=== PATIENT | male | born 1955 | race Caucasian/White ===

== ENCOUNTER → 2016-11-27 | Outpatient (CLI) | payer MEDICARE ==
[~2016-11-27] MED LIST: A/T/S 2% GEL30 GM OD; ALBUTEROL17 GM INH; ALBUTEROL2.5 MG/0.5 INH; ALDACTONE25 MG PO; ALPRAZOLAM0.25 MG PO; AMIODARONE PO; ASPIRIN PO; ATORVASTATIN CA10 MG PO; BUMETANIDE1 MG PO; BUMETANIDE2 M1 PO; CORDARONE200 M1 PO; COUMADIN PO; FLEXERIL PO; IRON GLUCONATE PO; KETOPROFEN PO; LACTULOSE10 G/15 M1 PO; LEVOTHYROXINE100 MCG PO; METOPROLOL TAR25 MG DOB; METOPROLOL TAR25 MG PO; MILK OF MA800 MG/5 M PO; MILK OF MAGNESIA PO; OXYCODON-ACETA1 EAC1 PO; PEDIA-LAX400 MG PO; PERCOCET 10/3251 TAB PO; POTASSIUM CHLO10 ME1 PO; PROAIR RESPICL90 MCG INH; PROTONIX PO; SODIUM BICARBO650 MG PO; SPIRIVA18 MCG INH; WARFARIN SODIUM1 M1 PO
--- NOTE | ~2016-11-27 | XA170 ---
[facility] A Service of [facility] & [facility] RADIOLOGY TEXT RESULTS PATIENT: RAMON CORMIER SR LOCATION: CIVR : 55 UNIT #: [id number] AGE: [address]: Mega Moreno MD SEX: M ORDER DR: [id number] [facility] [address] [facility] [place], [place] [address] [id number] O MR#: [id number] Acc #: [id number] NAME: RAMON CORMIER : 1955 SEX: M STUDY DATE/TIME: 11/27/2016 8:55 UNIT: [facility] ROOM: STUDY DESCRIPTION: XA Paracentesis W Image Attending Physician: Mega Moreno M.D. Ordering Physician: Mega Moreno M.D. Primary Care Physician: Raj Rahman M.D. MEDICAL IMAGING REPORT This report is preliminary unless electronic signature is present EXAM Ultrasound-guided paracentesis HISTORY Ascites. FINDINGS Procedure, attendant risks and options were discussed with Mr. Cormier. He understands and wishes to proceed. Ultrasound examination was performed of the right flank. The area was prepped with Chlorhexidine and a sterile drape applied. Sterile gloves and local anesthetic were utilized. A 6-Occitan pigtail was placed and a total of 1.6 L of ascitic fluid was removed. This was very well tolerated. Catheter was removed, hemostasis achieved and the patient discharged. A solitary ultrasound image was recorded. CONCLUSION Successful therapeutic paracentesis with removal of 1.6 L of fluid. Dictated by... Scar Sanchez M.D. THIS IS AN ELECTRONICALLY VERIFIED REPORT Scar Sanchez M.D. at 11/30/2016 12:00 PM Angel TD: 11/27/2016 19:33 JOB #: [id number] MEDICAL IMAGING REPORT Page 1 of 1 COPY
[2016-11-27 08:30] LABS: HEMATOCRIT 35.8 % (38.0-50.0); HEMOGLOBIN 11.5 gm/dL (13.0-16.0); MEAN CELL VOLUME 89.7 FL (83-96); MEAN CORPUSCULAR HEMOGLOBIN 28.9 PG (28-34); MEAN CORPUSCULAR HGB CONC 32.2 g/dL (30-36); MEAN PLATELET VOLUME 7.2 FL (6.5-11.5); RED CELL DISTRIBUTION WIDTH 16.6 % (11.0-15.5); WHITE BLOOD COUNT 9.5 X10e3 (4.0-10.5)
[2016-11-27 08:43] LABS: INR 1.3; PARTIAL THROMBOPLASTIN TIME 26.8 SECONDS (23.5-31.3)
== END | disposition home or self-care (01) ==
LOC: CIVR 08:06
PROVIDERS: Internal Medicine Nephrology
DX: R18.8 Other ascites (principal)
CPT/HCPCS: 36415; 85027; 85610; 85730; C1729

== ENCOUNTER → 2016-11-30 | Outpatient (CLI) | payer MEDICARE ==
--- NOTE | ~2016-11-30 | XA170 ---
[facility] A Service of [facility] RADIOLOGY TEXT RESULTS PATIENT: RAMON CORMIER SR LOCATION: [facility] : 55 UNIT #: [id number] AGE: [address]: Mega Moreno MD SEX: M ORDER DR: [id number] [facility] [address]. [place], [place] [address] [id number] O MR#: [id number] Acc #: [id number] NAME: RAMON CORMIER : 1955 SEX: M STUDY DATE/TIME: 11/30/2016 10:58 [facility] ROOM: STUDY DESCRIPTION: XA Paracentesis W Image Attending Physician: Mega Moreno M.D. Ordering Physician: Mega Moreno M.D. Primary Care Physician: Raj Rahman M.D. MEDICAL IMAGING REPORT This report is preliminary unless electronic signature is present EXAM Ultrasound-guided paracentesis. DATE OF EXAM 11/30/2016 INDICATIONS 61-year male with ascites. The risks, benefits and alternatives of the procedure were discussed with the patient and an informed consent was obtained. In the procedure room, a time-out was performed confirming correct patient and procedure. All elements of maximum sterile-barrier technique utilized according to guidelines appropriate for the procedure. TECHNIQUE/FINDINGS Ultrasound of the right lower quadrant was performed. There is small amount of ascites. The overlying skin was prepped and draped in the usual sterile fashion. 1% lidocaine was utilized to anesthetize the skin and underlying subcutaneous tissues. Next, under ultrasound guidance, 5-Azerbaijani Yueh catheter was inserted into the peritoneal space of the right lower quadrant and 1550 mL of clear yellow fluid was removed. The needle was removed and a sterile dressing was applied. No immediate complications. IMPRESSION Technically successful ultrasound-guided paracentesis. Dictated by... Adithya Cullen M.D. [facility] A Service of [facility] RADIOLOGY TEXT RESULTS PATIENT: RAMON CORMIER SR LOCATION: [facility] : 55 UNIT #: [id number] AGE: [address]: Mega Moreno MD SEX: M ORDER DR: THIS IS AN ELECTRONICALLY VERIFIED REPORT Adithya Cullen M.D. at 12/01/2016 2:34 PM KASEY/fernanda TD: 11/30/2016 19:34 JOB #: [id number] MEDICAL IMAGING REPORT Page 1 of 1 COPY
== END | disposition home or self-care (01) ==
LOC: CIVR 10:28
PROC: 0W9G3ZX Drainage of Peritoneal Cavity, Percutaneous Approach, Diagnostic (ICD-10-PCS; principal; 2016-11-30)
DX: R18.8 Other ascites (principal)

== ENCOUNTER → 2017-01-10 | Outpatient (CLI) | payer MEDICARE ==
--- NOTE | ~2017-01-10 | XA170 ---
[facility] A Service of [facility] & [facility] RADIOLOGY TEXT RESULTS PATIENT: RAMON RM SR LOCATION: CIVR : 55 UNIT #: [id number] AGE: [address]: Raj Rahman MD SEX: M ORDER DR: [id number] [facility] [address]. [place], [place] [address] [id number] O MR#: [id number] Acc #: [id number] NAME: RAMON RM : 1955 SEX: M STUDY DATE/TIME: 01/10/2017 14:19 [facility] ROOM: STUDY DESCRIPTION: XA Paracentesis W Image Attending Physician: Raj Rahman M.D. Referring Physician: Raj Rahman M.D. Ordering Physician: Raj Rahman M.D. Primary Care Physician: Raj Rahman M.D. MEDICAL IMAGING REPORT This report is preliminary unless electronic signature is present EXAM Ultrasound-guided paracentesis. HISTORY Heart failure, refractory ascites. PROCEDURE Procedure, attendant risks and options were discussed with Mr. Rm. He understands and wished to proceed. Ultrasound examination was performed and a site in the right flank was chosen. Skin was marked, prepped, and draped utilizing maximal sterile barrier technique and under local anesthesia, a 5-Spanish catheter was inserted and 3.4 L of fluid was removed and discarded. This was well tolerated. Permanent ultrasound image was recorded. CONCLUSION Successful ultrasound-guided paracentesis with removal of 3.4 L of fluid. Dictated by... Scar Sanchez M.D. THIS IS AN ELECTRONICALLY VERIFIED REPORT Scar Snachez M.D. at 01/11/2017 7:26 AM Diana TD: 01/10/2017 16:07 JOB #: [id number] MEDICAL IMAGING REPORT Page 1 of 1 COPY
[2017-01-10 13:42] LABS: HEMATOCRIT 40.8 % (38.0-50.0); HEMOGLOBIN 13.2 gm/dL (13.0-16.0); MEAN CELL VOLUME 88.4 FL (83-96); MEAN CORPUSCULAR HEMOGLOBIN 28.5 PG (28-34); MEAN CORPUSCULAR HGB CONC 32.3 g/dL (30-36); MEAN PLATELET VOLUME 6.9 FL (6.5-11.5); RED BLOOD COUNT 4.62 X10e (3.90-5.60); WHITE BLOOD COUNT 10.4 X10e3 (4.0-10.5)
[2017-01-10 13:58] LABS: INR 1.1; PARTIAL THROMBOPLASTIN TIME 26.1 SECONDS (23.5-31.3); PROTHROMBIN TIME (PATIENT) 11.6 SECONDS (9.6-11.5)
== END | disposition home or self-care (01) ==
LOC: CIVR 13:14
PROVIDERS: Family Medicine
PROC: 0W9G3ZX Drainage of Peritoneal Cavity, Percutaneous Approach, Diagnostic (ICD-10-PCS; principal; 2017-01-10)
DX: R18.8 Other ascites (principal)
CPT/HCPCS: 36415; 85027; 85610; 85730

== ENCOUNTER → 2017-01-25 | Outpatient (CLI) | payer MEDICARE ==
--- NOTE | ~2017-01-25 | XA170 ---
[facility] A Service of [facility] RADIOLOGY TEXT RESULTS PATIENT: RAMON CORMIER SR LOCATION: CIVR : 55 UNIT #: [id number] AGE: [address]: Raj Rahman MD SEX: M ORDER DR: [id number] [place] [id number] [facility] [place] [facility]. [place], [place] [address] [id number] O MR#: [id number] Acc #: [id number] NAME: RAMON CORMIER : 1955 SEX: M STUDY DATE/TIME: 01/25/2017 14:07 UNIT: [facility] ROOM: STUDY DESCRIPTION: XA Paracentesis W Image Attending Physician: Raj Rahman M.D. Referring Physician: Raj Rahman M.D. Ordering Physician: Raj Rahman M.D. Primary Care Physician: Raj Rahman M.D. MEDICAL IMAGING REPORT This report is preliminary unless electronic signature is present EXAM Ultrasound guided paracentesis INDICATION Ascites FINDINGS The patient's most recent paracentesis was on 01/10/17. PROCEDURE The risks, benefits, and alternatives to the procedure explained to the patient, signed informed consent obtained. FINDINGS He was placed supine on the stretcher, preliminary ultrasound of the abdomen was performed, which demonstrated moderate ascites. The overlying skin was marked. Patient prepared in usual sterile fashion. Time-out was performed as per protocol. Skin and subcutaneous tissues were anesthetized with buffered lidocaine and a [place] catheter was advanced into the fluid with aspiration of serous material. Catheter was hooked to suction tubing, and there was evacuation of a total of 4.2 L of serous material. Catheter was then removed and manual pressure applied until hemostasis was obtained. Of note, patient does have a frankly nodular contour of the liver characteristic of cirrhosis. IMPRESSION Technically successful ultrasound guided paracentesis with evacuation of 4.2 L of serous material. Ultrasound was used during the procedure, and permanent images were saved. Dictated by... [facility] A Service [facility] RADIOLOGY TEXT RESULTS PATIENT: RAMON CORMIER SR [id number] 55 UNIT #: [id number] AGE: [address]: Raj Rahman MD SEX: M ORDER DR: Zaina Moreno M.D. THIS IS AN ELECTRONICALLY VERIFIED REPORT Zaina Moreno M.D. at 01/27/2017 12:41 PM AFF/ea TD: 01/26/2017 14:06 JOB #: [id number] MEDICAL IMAGING REPORT Page 1 of 1 COPY
== END | disposition home or self-care (01) ==
LOC: CIVR 13:38
DX: R18.8 Other ascites (principal)

== ENCOUNTER → 2017-02-02 | Outpatient (CLI) | payer MEDICARE ==
--- NOTE | ~2017-02-02 | XA170 ---
[facility] A Service of [facility] & [facility] RADIOLOGY TEXT RESULTS PATIENT: RAMON RM SR LOCATION: CIVR : 55 UNIT #: [id number] AGE: [address]: Raj Rahman MD SEX: M ORDER DR: [id number] [facility] [address]. [place], [place] [address] [id number] O MR#: [id number] Acc #: [id number] NAME: RAMON RM : 1955 SEX: M STUDY DATE/TIME: 02/02/2017 10:32 [facility]: STUDY DESCRIPTION: XA Paracentesis W Image Attending Physician: Raj Rahman M.D. Referring Physician: Raj Rahman M.D. Ordering Physician: Raj Rahman M.D. Primary Care Physician: Raj Rahman M.D. MEDICAL IMAGING REPORT This report is preliminary unless electronic signature is present EXAM Ultrasound-guided paracentesis HISTORY Refractory ascites FINDINGS Procedure, attendant risks and options were discussed with Mr. Rm. He was had this procedure before. He understands and wishes to proceed. Ultrasound examination was performed of the abdomen. A site in the right flank was chosen. Skin was marked prepped, draped and subsequently anesthetized with 1% Xylocaine utilizing maximal sterile barrier technique including sterile drapes and sterile gloves. A 5-Lao catheter was inserted and 3.9 L of fluid was withdrawn. The catheter was removed, hemostasis achieved and the patient was subsequent discharged. A single ultrasound image was obtained for documentation. CONCLUSION Technically successful right-sided paracentesis with removal of 3.9 L of fluid. Dictated by... Scar Sanchez M.D. THIS IS AN ELECTRONICALLY VERIFIED REPORT Scar Sanchez M.D. at 02/04/2017 9:17 AM Angel TD: 02/02/2017 16:03 JOB #: [id number] MEDICAL IMAGING REPORT Page 1 of 1 COPY
== END | disposition home or self-care (01) ==
LOC: CIVR 10:00
PROC: 0W9G3ZZ Drainage of Peritoneal Cavity, Percutaneous Approach (ICD-10-PCS; principal; 2017-02-02)
DX: R18.8 Other ascites (principal)

== ENCOUNTER → 2017-02-05 | Outpatient (CLI) | payer MEDICARE ==
--- NOTE | ~2017-02-05 | XA231 ---
[facility] A Service of [facility] & [facility] RADIOLOGY TEXT RESULTS PATIENT: RAMON CORMIER SR LOCATION: CIVR : 55 UNIT #: [id number] AGE: [address]: Raj Rahman MD SEX: M ORDER DR: [id number] [place] [id number] [facility]. [place], [place] [address] [id number] O MR#: [id number] Acc #: [id number] NAME: RAMON CORMIER : 1955 SEX: M STUDY DATE/TIME: 02/05/2017 15:25 UNIT: CIVR ROOM: STUDY DESCRIPTION: XA Consult Attending Physician: Raj Rahman M.D. Ordering Physician: Raj Rahman M.D. Primary Care Physician: Raj Rahman M.D. MEDICAL IMAGING REPORT This report is preliminary unless electronic signature is present CONSULTATION Mr. Cormier is a 61-year-old gentleman with a history of ascites. He comes in to the department for routine paracenteses. His most recent paracentesis was performed on February 02, 2017 and following that procedure, he reports severe right-sided abdominal pain. He returns for evaluation today. On physical exam, he appears to have erythema overlying the right side of his abdomen and is certainly very tender to palpation. He continues to drain from his paracentesis site within the right lower quadrant, and has actually covered this site with an ostomy bag. The material within the bag is turbid in appearance, and the possibility that he may have some underlying spontaneous bacterial peritonitis certainly cannot be excluded. Patient currently is denying any fevers, but does report that he feels short of breath, and in fact could not lie flat for me to do a dedicated ultrasound of his abdomen. On ultrasound today, again, he was very difficult to assess due to positioning and I think CT would probably allow for more accurate evaluation of his abdomen. I recommended that the patient go to the emergency department and did discuss him with Dr. Aleman, who was prepared to evaluate him; however, the patient declined and said that he preferred to go to the [facility] Emergency Department. Dictated by... Zaina Moreno M.D. THIS IS AN ELECTRONICALLY VERIFIED REPORT Zaina Moreno M.D. at 02/07/2017 11:23 AM AFF/psc STS. [facility] A Service of [facility] & [facility] RADIOLOGY TEXT RESULTS PATIENT: RAMON CORMIER SR LOCATION: [facility] : 55 UNIT #: [id number] AGE: [address]: Raj Rahman MD SEX: M ORDER DR: TD: 02/05/2017 23:43 JOB #: [id number] MEDICAL IMAGING REPORT Page 1 of 1 COPY
== END | disposition home or self-care (01) ==
LOC: CIVR 14:51
DX: R18.8 Other ascites (principal)
CPT/HCPCS: 76140